=== PATIENT | female | born 1995 | race Caucasian/White ===

== ENCOUNTER 2024-05-25 00:20 | Emergency (ER) | payer OTHER, SELFPAY ==
--- NOTE | ~2024-05-25 | XR_ITS ---
EXAMINATION: XR ANKLE, LEFT CLINICAL INFORMATION: injury COMPARISON: None available. TECHNIQUE: AP, lateral, and mortise views of the left ankle. FINDINGS: The talar dome appears intact. 2 ossific bodies each measuring approximately 2 mm x 1 mm node along the inferior margin of the medial malleolus. No soft tissue inflammatory changes identified. There is airspace of the fifth metatarsal is normal in appearance. Normal appearance of the subtalar joints. Normal bone mineralization. XR/XR ankle LT 2V IMPRESSION: Minimally displaced age-indeterminate avulsion fractures of the medial malleolus. No gross adjacent soft tissue inflammatory changes to specifically suggest acute injury. Electronically signed by: Chin Fortune MD 05/25/2024 02:30 AM [facility]
[2024-05-25 00:25] VITALS: BP 136/71; PULSE 100; RESP 20; TEMP 36.2; O2SAT 98; BMI 26.9
[2024-05-25] MEDS: Acetaminophen 325 MG TABLET 650 MG PO (00:31)
--- NOTE | 2024-05-25 00:31 | PC.NURSE ---
medicated per mar.
--- NOTE | 2024-05-25 02:17 | ED.LOWEXIN ---
HPI - Extremity Injury (Lower) General Chief Complaint: Extremity Injury, Lower Stated Complaint: left ankle inj Time Seen by Provider: 05/25/24 01:30 Source: patient and family Mode of arrival: ambulatory Limitations: no limitations History of Present Illness ED Provider: DR. Arthur HPI Narrative: 29-year-old female came in for evaluation of left ankle pain after playing soccer game, patient twisted her left ankle heard a pop. unable to bear weight on the left ankle. Related Data Allergies Allergy/AdvReac Type Severity Reaction Status Date / Time bee pollen [bee stings] AdvReac Anaphylaxis Verified 05/25/24 00:28 Review of Systems Review of Systems: All other systems are reviewed and are negative Constitutional: Reports as per HPI and Reports no additional constitutional complaints Eyes: Reports as per HPI and Reports no additional eye complaints Reports system reviewed and no additional complaints, except as documented Cardiovascular: Reports as per HPI and Reports no additional cardiovascular complaints Respiratory: Reports as per HPI and Reports no additional respiratory complaints Gastrointestinal: Reports as per HPI and Reports no additional gastrointestinal complaints Genitourinary: Reports no additional female genitourinary complaints Musculoskeletal: Reports no additional musculoskeletal complaints Skin/Breast: Reports system reviewed and no additional complaints, except as docu Psychiatric: Reports no additional psychiatric complaints Endocrine: Reports no additional endocrine complaints Hematologic/Lymphatic: Reports no additional hematologic/lymphatic complaints Allergic/Immunologic: Reports no additional allergic/immunologic complaints Reports system reviewed and no additional complaints, except as documented and Reports Abnormal speech present [facility] Social History Social History Advance Directives: No Advance Directives Information Provided: No Do you have a plan to hurt others: No Plan Physical Exam Vital Signs: Vital Signs: Last Vital Signs Temp 97.1 F 05/25/24 00:25 Pulse 100 05/25/24 00:25 Resp 20 05/25/24 00:25 BP 136/71 05/25/24 00:25 Pulse Ox 98 05/25/24 00:25 O2 Del Method Room Air 05/25/24 00:25 BMI result Body Mass Index 26.9 Vital signs have been reviewed and appear to be correct. Blood pressure elevated. Heart rate normal. Respiratory rate normal. Temperature normal. Oxygen saturation normal. Appearance: Alert. Oriented X3. No acute distress. Head: Normal external exam. Normocephalic. Atraumatic. No Fletcher signs noted. No raccoon eyes noted Eyes: PERRLA. EOMI. Conjunctiva and sclera normal. Eyelids normal. ENT: TM's Normal. Pharynx normal. Uvula midline. Moist mucous membranes. No trismus noted. No drooling noted. No muffled voice noted. Neck: Normal inspection. Neck supple. FROM. No adenopathy. Thyroid Normal. No meningeal signs. No neck mass noted. CVS: Normal heart rate and rhythm. Heart sound normal. No murmurs noted. Pulses normal throughout. Respiratory: No respiratory distress. Painless inspiration. Breath sounds normal. No wheezes/rales/rhonchi noted. Chest nontender. No accessory muscle usage noted or decreased air movement noted. Abdomen: Soft and nontender. Bowel sounds normal in all 4 quadrants. No distention noted. No organomegaly noted. No visible injury noted. Back: No CVA tenderness. Full range of motion noted. Skin: Skin warm and dry. Normal skin color. Normal skin turgor. No rashes/lesions/lacerations noted. Extremities: Left ankle: Bilateral swelling to bilateral malleolus with tenderness to touch, unable to bear weight on it , neurovascularly intact. Neuro: Oriented X 3. Cranial nerve exam: II-XII are grossly intact No motor deficit. No sensory deficit. Reflexes normal. Course Reevaluation(s) Reevaluation #1: Minimally displaced age-indeterminate avulsion fractures of the medial malleolus. No gross adjacent soft tissue inflammatory changes to specifically suggest acute injury. Ankle splint, crutches, follow up with Ortho, NSAIDs if Time: 02:48 Medications Administered Discontinued Medications Generic Name Dose Route Start Last Admin Trade Name Freq PRN Reason Stop Dose Admin Acetaminophen 650 mg 05/25/24 00:25 05/25/24 00:31 Acetaminophen 325 Mg Tablet PO 05/25/24 00:26 650 mg ONCE ONE Administration Medical Decision Making Differential Diagnosis Differential Diagnoses: The differential diagnosis associated with the presentation includes ( Left ankle fracture, left ankle dislocation,) Admission/Observation Consideration of admission/observation: Escalation of care including admission/observation considered Independent Interpretation I performed an independent interpretation of an: Plain X-Ray ( left ankle:Minimally displaced age-indeterminate avulsion fractures of the medial malleolus. No gross adjacent soft tissue inflammatory changes to specifically suggest acute injury. ) Radiology Impression Discussion of test interpretation with radiology: I have reviewed the radiologist's reading. Discharge Plan Discharge Clinical Impression: Ankle fracture, left Patient Disposition: Home, Self-Care Instructions: Ankle Fracture (ED) Additional Instructions: use crutches no weight-bearing, use the splint, apply ice to the ankle, take ibuprofen 200 mg every 6 hours if needed for pain, follow-up with ortho. Referrals: Billy Dyer MD [Physician] - Print Language: Citizen Of [place]
[2024-05-25 03:24] VITALS: BP 128/65; PULSE 88; RESP 18; TEMP 36.6; O2SAT 99
== END 2024-05-25 03:46 | disposition home or self-care (01) ==
PROVIDERS: Emergency Provider Emergency Medicine
DX: S82.52XA Displaced fracture of medial malleolus of left tibia, initial encounter for closed fracture (principal); X50.1XXA Overexertion from prolonged static or awkward postures, initial encounter; Y93.66 Activity, soccer; Y92.322 Soccer field as the place of occurrence of the external cause; Y99.9 Unspecified external cause status
CPT/HCPCS: 73600; 99283; 99284